=== PATIENT | female | born 1925 | race Caucasian/White ===

== ENCOUNTER 2016-11-06 12:24 | Emergency (ER) | payer MEDICARE ==
[~2016-11-06] VITALS: Ht 160 cm; Wt 68.2 kg
[~2016-11-06 12:24] MED LIST: ALBUTHFA INH; BRIM10DR12 OS; COU25 PO; COU5 PO; Calcium PO; ERGO400C PO; KETO5DRO OS; LEVO25TA2 PO; NITR-66 PO; PRD10T PO; TIMO10DR7 OS; TIOT18CA IH
[2016-11-06 12:33] VITALS: BP 144/58; PULSE 60; RESP 18; O2SAT 95
--- NOTE | 2016-11-06 12:44 | ED.REPORT ---
HPI-Abd Pain F 40 and Over Date of Service Nov 06, 2016 ED Provider: Doc,Ed MD This is an 89 year old female presenting to the emergency department via EMS complaining of progressively worsening lower abdominal pain that began weeks ago. Reports constipation, decreased PO intake, cough, and cold symptoms. Recently completed antibiotics for UTI, last dose 3 days ago. Denies nausea, vomiting, fevers, chills, chest pain, headache, or shortness of breath. Nursing Notes Stated Complaint: ABDOMINAL PAIN Chief Complaint: Female Abdominal Pain Nursing Notes Reviewed: Yes Allergies: Coded Allergies: Sulfa (Sulfonamide Antibiotics) (Verified Allergy, Unknown, 11/06/16) Scheduled ([Calcium]) 1,250 MG PO TID Albuterol-Expunged Drug, Do Not Renew! (Albuterol-Expunged Drug, Do Not Renew!) 90 Mcg/Puff Hfa.aer.ad 1 PUFF INH PRN 1 puff q4-6h as needed for shortness of breath Brimonidine-Expunged Drug, Do Not Renew! (Brimonidine-Expunged Drug, Do Not Renew!) 10 Ml Drops 1 GTT OS BID Cephalexin (Keflex) 500 Mg Capsule 500 MG PO QID Ergocalciferol-Expunged Drug, Do Not Renew! (Vitamin D-Expunged Drug, Do Not Renew!) 400 Unit Capsule 800 UNIT PO DAILY Ketorolac Tromethamine (Ketorolac Tromethamine) 5 Ml Drops 1 GTT OS TID Levothyroxine-Expunged Drug, Do Not Renew! (Levoxyl-Expunged Drug, Do Not Renew! ) 25 Mcg Tablet 25 MCG PO DAILY Nitrofurantoin Macrocrystal-Expunged Drug, Do (Macrodantin-Expunged Drug, Do Not Renew!) 100 Mg Capsule 100 MG PO BID PredniSONE-Expunged Drug, Do Not Renew! (PredniSONE-Expunged Drug, Do Not Renew! ) 10 Mg Tab 10 MG PO DAILY 11/4-10mg 11/5-10mg 11/6-5mg 11/7-5mg STOP Timolol-Expunged Drug, Do Not Renew! (Timoptic OPH-Expunged Drug, Do Not Renew! ) 10 Ml Drops 1 GTT OS BID Tiotropium Br-Expunged Drug, Do Not Renew! (Spiriva-Expunged Drug, Do Not Renew! ) 18 Mcg/Puff Pack 1 PUFF IH DAILY Warfarin Inactive Drug Do Not Use (Coumadin Inactive Drug Do Not Use) 5 Mg Tablet 5 MG PO 17 1700 (5 PM) DAILY Warfarin Inactive Drug Do Not Use (Coumadin Inactive Drug Do Not Use) 2.5 Mg Tablet 2.5 MG PO 17 1700 (5 PM) DAILY General Time Seen by MD: 12:43 Chief Complaint Abdominal pain Hx Obtained From: Patient Sudden in Onset?: Yes Onset Occurred: Just prior to arrival Symptom Duration: Since onset Severity: Current: Mild Pertinent Negative: Pt denies other symptoms Recent Healthcare: No recent hospitalization, Recent doctor visit Similar Sx Previous: No Past Medical History Past Medical History Denies Past Surgical History Pacemaker insertion Ambulatory Status Independent Review of Systems Constitutional: Denies: Chills, Fever Respiratory: Reports: Non-productive cough, Denies: Shortness of breath GI: Reports: Abdominal pain, Constipation, Denies: Diarrhea, Nausea, Vomiting Female: Denies: Dysuria, Hematuria Complete sys rev & neg: except as marked. Physical Exam Vital Signs Vital Signs (First) Date Time Temp Pulse Resp B/P Pulse Ox O2 Delivery O2 Flow Rate FiO2 11/06/16 12:33 36.7 60 18 144/58 95 Room Air Initial VS: Reviewed Head / Eyes: Atraumatic, Normocephalic, PERRL ENT: Mucous membranes moist, Conjunctiva normal, No scleral icterus Neck: Supple, Non-tender, Full range of motion Extremities: Vascular intact, Neuro intact, No swelling, No tenderness Skin: Warm, Dry, No cyanosis Neurologic: Alert, Oriented, Nonfocal Psychiatric: Mood/affect normal, Behavior normal, Normal thought content General/Constitutional: Awake, Alert Respiratory / Chest: Breath sounds NL, Breath sounds = bilat, No respiratory distress, No rales, No rhonchi, No wheezing, No stridor Cardiovascular: Heart rate NL, Regular rhythm, Heart sounds NL, Peripheral circulation NL Abdomen: No guarding, No rebound, BS normoactive Tenderness/Guarding/Rebound: Positive: Tender LLQ... (Mild), Tender suprapubic Back: Inspection NL, Non-tender, No CVA tenderness Interpretation & Diagnostics Lab Results Interpretation Result Diagram: 11/06/16 1345 11/06/16 1345 Test 11/06/16 12:54 11/06/16 13:45 Urine Color Straw (YELLOW) Urine Appearance Hazy (CLEAR,HAZY) Urine pH 7.5 (5.0-8.0) Urine Specific [place] 1.010 (1.003-1.035) Urine Protein Negativemg/dL (NEG,TRACE) Urine Glucose (UA) Negativemg/dL (NEGATIVE) Urine Ketones Negativemg/dL (NEGATIVE) Urine Occult Blood Trace (NEGATIVE) Urine Nitrite Negative (NEGATIVE) Urine Bilirubin Negative (NEGATIVE) Urine Urobilinogen Normalmg/dL (NORMAL) Urine Leukocyte Esterase Moderate (NEGATIVE) Urine RBC 3-10/hpf (0-2) Urine WBC 11-50/hpf (0-5) Urine Epithelial Cells Occasional/hpf (NONE-MOD) Urine Crystals None seen (NONE SEEN) Urine Bacteria Few/hpf (NONE-FEW) Urine Hyaline Casts None/lpf (NONE) Urine Granular Casts None seen (NONE SEEN) Urine Waxy Casts None seen (NONE SEEN) Urine Red Blood Cell Casts None seen (NONE SEEN) Urine White Blood Cell Casts None seen (NONE SEEN) Urine Mucus None seen (None Seen) Urine Trichomonas None seen (NONE SEEN) Urine Yeast None (NONE SEEN) Urinalysis Comment None Urine Culture Reflexed Indicated White Blood Count 6.5th/mm3 (3.8-10.1) Red Blood Count 4.25mil/mm3 (3.90-5.20) Hemoglobin 13.3g/dL (12.0-15.6) Hematocrit 40.5% (35.0-46.0) Mean Corpuscular Volume 95.3fL (81-100) Mean Corpuscular Hemoglobin 31.3pg (27.0-35.0) Mean Corpuscular Hemoglobin Concent 32.8% (32.0-37.0) Red Cell Distribution Width 13.5% (12.3-15.4) Platelet Count 242bil/L (150-400) Neutrophils (%) (Auto) 70.1% (40-74) Lymphocytes (%) (Auto) 16.8% (14-46) Monocytes (%) (Auto) 11.2% (4-12) Eosinophils (%) (Auto) 1.4% (0-5) Basophils (%) (Auto) 0.2% (0-3) Sodium Level 140mEq/L (134-144) Potassium Level 4.0mEq/L (3.5-5.2) Chloride Level 100mEq/L (97-108) Carbon Dioxide Level 26mmol/L (18-29) Blood Urea Nitrogen 13mg/dL (8-27) Creatinine 0.46mg/dL (0.57-1.00) Estimat Glomerular Filtration Rate 183mL/min (>59) Glucose Level 94mg/dL (60-99) Calcium Level 8.9mg/dL (8.5-10.1) Total Bilirubin 0.7mg/dL (0.0-1.2) Aspartate Amino Transf (AST/SGOT) 26U/L (0-50) Alanine Aminotransferase (ALT/SGPT) 12U/L (0-32) Alkaline Phosphatase 81U/L (25-165) Total Protein 6.6g/dL (6.4-8.4) Albumin 3.8g/dL (3.4-5.0) Lipase 21U/L (13-60) X-Ray Abdominal Interpretation IMPRESSION: No acute process. Dictated by: Lloyd Frank M.D. on 11/06/2016 at 13:48 Approved by: Lloyd Frank M.D. on 11/06/2016 at 13:49 Re-Eval/Medical Decision Med Decision/Clinical Course 89-year-old female chronic UTIs presenting with lower abdominal pain times several weeks. No sign symptoms pyelonephritis or sepsis. Her exam is quite benign as above. Vital signs stable. Urine positive for UTI. Patient will be treated with Keflex. Follow up with primary doctor. Counseled Regarding: Diagnosis, Lab results, Need for follow-up Discharge & Departure Primary Impression: Urinary tract infection Urinary tract infection type: site unspecified Hematuria presence: without hematuria Qualified Code: N39.0 - Urinary tract infection, site not specified Disposition: Home Discharge Condition All VS Reviewed: Yes Condition: Stable Patient Instructions: Urinary Tract Infection in Women (ED) Additional Instructions: Thank you for seeking care in the emergency department today. Take antibiotics as prescribed for urinary tract infection. Follow-up with your primary care provider. Return to the emergency department for any new or worsening symptoms such as fever, chills, nausea, or vomiting. Referrals: Pascual Bull MD (PCP) Scribe Attestation Portions of this note were transcribed by Terry King. I, Dr. Conway personally performed the history, physical exam and medical decision-making; I reviewed and confirmed the accuracy of the information in the transcribed note. Signed by: luisito Capellan. 11/06/2016, 18:00. Manas Conway MD Nov 06, 2016 12:44 TERRY KING Nov 06, 2016 12:46
[2016-11-06 13:19] LABS: APPEARANCE,URINE HAZY (CLEAR,HAZY); COLOR,URINE STRAW (YELLOW); OCCULT BLOOD,URINE TRACE (NEGATIVE); PH,URINE 7.5 (5.0-8.0)
[2016-11-06 13:20] LABS: UROBILINOGEN,URINE NORMAL (NORMAL)
--- NOTE | 2016-11-06 13:50 | DRSVH ---
PROCEDURE: X-RAY ACUTE ABDOMINAL SERIES ([id number]) INDICATIONS: abd pain TECHNIQUE: One view chest and two views of the abdomen were acquired. COMPARISON: [facility], CR, XR CHEST 2VW, 07/15/2016, 11:39. FINDINGS: Surgical changes and devices: Left-sided pacer. Left axillary surgical clips. Chest: Lungs are clear. Heart size is normal. No pleural effusions. No pneumoperitoneum. Abdomen: Bowel gas pattern is normal. No suspicious calcifications. Visualized solid organ contour s appear normal. Bones: No suspicious bony lesions. IMPRESSION: No acute process. Dictated by: Lloyd Frank M.D. on 11/06/2016 at 13:48 Approved by: Lloyd Frank M.D. on 11/06/2016 at 13:49
[2016-11-06 13:53] LABS: BASOPHILS % (AUTO) 0.2 % (0-3); EOSINOPHILS % (AUTO) 1.4 % (0-5); MONOCYTES % (AUTO) 11.2 % (4-12); Mean Corpuscular Hemoglobin 31.3 pg (27.0-35.0); Mean Corpuscular Volume 95.3 fL (81-100); NEUTROPHILS % (AUTO) 70.1 % (40-74); Platelet Count 242 bil/L (150-400)
[2016-11-06] MEDS ORDERED: CEPH-512 PO (14:37)
[2016-11-06 15:03] VITALS: BP 181/87; PULSE 60; O2SAT 96
[2017-02-11] MEDS ORDERED: VIT1CAPS46 PO (09:28)
[2017-02-11] MEDS ORDERED: BIMA2.5D5 OD (09:28)
[2017-02-11] MEDS ORDERED: FELO5TAB4 PO (09:28)
[2017-02-11] MEDS ORDERED: TRAZ-115 PO (09:28)
[2017-02-11] MEDS ORDERED: OMEG500C PO (09:28)
[2017-02-11] MEDS ORDERED: HYDR-4003 PO (10:31)
== END 2016-11-06 15:04 | disposition home or self-care (01) ==
LOC: SED 12:24 → EDUNIT# 12:24 → EDBD 12:24 → SED 15:04
DX: N39.0 Urinary tract infection, site not specified (principal); Z88.2 Allergy status to sulfonamides; Z79.01 Long term (current) use of anticoagulants; Z95.0 Presence of cardiac pacemaker